=== PATIENT | male | born 1990 | race Two or more races ===

== ENCOUNTER → 2022-01-24 | Emergency (ER) | payer OTHER ==
[~2022-01-24] VITALS: Ht 180.3 cm; Wt 113.4 kg
[~2022-01-24] MED LIST: INTESTINEX680 M1 PO; OMEPRAZOLE MAGN20 MG
== END | disposition home or self-care (01) ==
LOC: ER 22:29
DX: K52.9 Noninfective gastroenteritis and colitis, unspecified (principal); Z20.822 Contact with and (suspected) exposure to COVID-19; Z91.013 Allergy to seafood